=== PATIENT | female | born 1930 | race Caucasian/White ===

== ENCOUNTER → 2016-05-30 | Outpatient (CLI) | payer OTHER ==
[~2016-05-30] MED LIST: ACET-1175 PO; ALPOPS1 OPB; ALUMSUS2 PO; ASPI325T45 PO; CALC-338 PO; CHOLTAB3 PO; DORZ1SOL OPB; FLNIN NAE; GFNSR600 PO; METH500T3 PO; METR0.754 TOP; MOME200A INH; MULT-506 PO; OMEP40CA PO; OXGN; PROB1TAB16 PO; RANI300T2 PO; SNG10 PO
--- NOTE | 2016-05-30 12:40 | MAMMOGRAPHY REPORT ---
UNILATERAL LEFT DIGITAL DIAGNOSTIC MAMMOGRAM TOMOSYNTHESIS AND TARGETED LEFT ULTRASOUND: 05/30/2016 CLINICAL HISTORY: Call back from screening mammography for an 8 mm asymmetry in the anterior left br east, only seen on the MLO view. TECHNIQUE: Spot compression left CC and MLO 2-D digital and tomosynthesis images were obtained. COMPARISON: Comparison is made to exams dated: 05/17/2016 mammogram, 05/13/2015 mammogram, 05/12/20 14 mammogram, 05/11/2013 mammogram, 05/08/2012 mammogram, and 05/07/2011 mammogram - [facility]. BREAST COMPOSITION: The tissue of the left breast is heterogeneously dense, which may obscure small masses. FINDINGS: The spot compression MLO view of the left breast demonstrates near complete effacement of the 8 mm asymmetry in the anterior breast, along the posterior nipple line aerated the parenchymal p attern of the spot compression view is very similar to the 05/12/2014 exam, suggesting it represents the patient's baseline. There are minimal vascular calcification and a few benign coarse calcifica tions in the left breast. No focal architectural distortion or persistent mass. No suspicious clus ter of microcalcifications. Real-time high-resolution sonographic evaluation was performed in the 7:00 to 10:00, retroareolar an d 2:00 to 5:00 axes of the left breast. Normal fibroglandular tissue is seen without a discrete joshua id or cystic mass. IMPRESSION: ACR BI-RADS CATEGORY 2: BENIGN, TARGETED ULTRASOUND ACR BI-RADS CATEGORY 2: BENIGN Effacement of the 8 mm asymmetry in the anterior left breast, and no suspicious sonographic correlat e. This most likely represented normal overlapping fibroglandular tissue. There is no mammographic or targeted sonographic evidence of malignancy. Return to annual mammogram screening schedule is re commended. The patient has been verbally notified of the results. Approximately 10% of breast cancers are not detected with mammography. A negative mammographic repor t should not delay biopsy if a clinically suggestive mass is present. Cathy Paniagua M.D. ay/:05/30/2016 11:00:36 Water Analyst: Mariola STATON(R)(Isra), [facility] letter sent: Normal 1/2 BI-RADS Code: ACR BI-RADS Category 2: Benign Ultrasound BI-RADS: ACR BI-RADS Category 2: Benign
== END | disposition home or self-care (01) ==
LOC: C.MAMM 10:24
PROVIDERS: ATTEND Family Medicine
DX: R92.8 Other abnormal and inconclusive findings on diagnostic imaging of breast (principal)

== ENCOUNTER → 2016-07-11 | Outpatient (CLI) | payer OTHER ==
[2016-07-13 15:25] LABS: ALBUMIN 3.8 G/DL (3.8-4.8); GAMMA GLOBULIN 1.4 G/DL (0.8-1.7); TOTAL PROTEIN 7.2 G/DL (6.2-8.3)
== END | disposition home or self-care (01) ==
LOC: C.LAB1850 14:44
PROVIDERS: ATTEND Internal Medicine Rheumatology
DX: M81.0 Age-related osteoporosis without current pathological fracture (principal); E55.9 Vitamin D deficiency, unspecified; E61.8 Deficiency of other specified nutrient elements

== ENCOUNTER → 2016-08-15 | Outpatient (CLI) | payer OTHER ==
[2016-08-15 14:56] LABS: BASO % 0.5 %; BASO ABS # 0.05 K/uL (0-0.2); COMPLETE YES; EOS % 0.9 %; HEMATOCRIT 37.7 % (37-47); IG% 0.4 %; LYMPH % 20.6 %; LYMPH ABS # 2.23 K/uL (1.2-3.4); MEAN CELL VOLUME 89.3 fL (80-100); MEAN CORPUSCULAR HEMOGLOBIN 29.1 pg (25-34); MEAN CORPUSCULAR HGB CONC 32.6 g/dl (32-36); MEAN PLATELET VOLUME 9.6 fL (7.4-10.4); MONO % 7.8 %; NEUT % 69.8 %; PLATELET COUNT 247 K/uL (130-400); RED BLOOD COUNT 4.22 M/uL (4.2-5.4); WHITE BLOOD COUNT 10.81 K/uL (4.8-10.8)
[2016-08-15 15:33] LABS: BLOOD UREA NITROGEN 18 mg/dl (7-18); BUN/CREATININE RATIO 30.3 (10-20); CALCIUM 9.6 mg/dl (8.5-10.1); CARBON DIOXIDE 29 mmol/L (21-32); CHLORIDE 100 mmol/L (98-107); CREATININE 0.58 mg/dl (0.60-1.20); GLUCOSE 83 mg/dl (70-99); SODIUM 136 mmol/L (136-145)
== END | disposition home or self-care (01) ==
LOC: C.LABBC 09:33
PROVIDERS: ATTEND Family Medicine
DX: M81.0 Age-related osteoporosis without current pathological fracture (principal); G62.9 Polyneuropathy, unspecified

== ENCOUNTER → 2016-11-15 | Outpatient (CLI) | payer OTHER ==
[2016-11-15 13:18] LABS: BASO % 0.6 %; BASO ABS # 0.06 K/uL (0-0.2); COMPLETE YES; EOS % 1.2 %; HEMATOCRIT 35.9 % (37-47); IG% 0.3 %; LYMPH % 17.8 %; LYMPH ABS # 1.91 K/uL (1.2-3.4); MEAN CELL VOLUME 89.8 fL (80-100); MEAN CORPUSCULAR HEMOGLOBIN 29.8 pg (25-34); MEAN CORPUSCULAR HGB CONC 33.1 g/dl (32-36); MEAN PLATELET VOLUME 9.4 fL (7.4-10.4); MONO % 9.4 %; NEUT % 70.7 %; PLATELET COUNT 256 K/uL (130-400); WHITE BLOOD COUNT 10.73 K/uL (4.8-10.8)
== END | disposition home or self-care (01) ==
LOC: C.LABBC 09:27
PROVIDERS: ATTEND Family Medicine
DX: M81.0 Age-related osteoporosis without current pathological fracture (principal); G62.9 Polyneuropathy, unspecified

== ENCOUNTER → 2017-01-26 | Outpatient (CLI) | payer OTHER ==
--- NOTE | 2017-01-26 11:40 | DIAGNOSTIC IMAGING REPORT ---
CHEST 2 VIEWS ROUTINE, RIGHT RIBS UNILATERAL MIN 2 VIEWS HISTORY: 86 years-old Female R07.81 Rib pain on right [id number] acute atypical lower right-sided chest pain with chronic cough. COMPARISON: Chest radiograph 6 12/15/2015 TECHNIQUE: Portable upright AP view of the chest with 4 views of the right ribs. FINDINGS: CHEST: Cardiac silhouette is within normal limits. No pneumothorax. There is chronic blunting of the bilateral costophrenic angles, right greater than left with persistent multifocal multilobar distribution of coarsened reticular opacities with extensive subpleural reticulation throughout the upper greater than lower lung zones. There is suggestion of subpleural cystic changes as well within these distributions with the possibility of some traction bronchiectasis. The bones appear grossly intact. RIBS: No acute displaced rib fracture is identified. IMPRESSION: 1. No acute cardiopulmonary process. No pneumothorax. 2. No acute displaced rib fracture identified. 3. Redemonstration of fibrotic interstitial lung disease with chronic blunting of the costophrenic angles, right greater than left suggesting scarring or small effusion, unchanged from 12/15/2015. The above report was generated using voice recognition software. It may contain grammatical, syntax or spelling errors. Electronically signed by: Darnell Ghosh M.D. 01/26/2017 11:39 AM Dictated Date/Time: 01/26/2017 11:36 AM
[2017-01-26 13:56] LABS: ALKALINE PHOSPHATASE 60 U/L (45-117); ALT/SGPT 24 U/L (12-78); AST/SGOT 17 U/L (15-37); BLOOD UREA NITROGEN 16 mg/dl (7-18); BUN/CREATININE RATIO 26.2 (10-20); CALCIUM 9.2 mg/dl (8.5-10.1); CARBON DIOXIDE 32 mmol/L (21-32); CHLORIDE 99 mmol/L (98-107); CREATININE 0.61 mg/dl (0.60-1.20); GLUCOSE 99 mg/dl (70-99); POTASSIUM 4.3 mmol/L (3.5-5.1); SODIUM 134 mmol/L (136-145)
[2017-01-26 13:57] LABS: ALB/GLOB RATIO 0.8 (0.9-2)
== END | disposition home or self-care (01) ==
LOC: C.RADBC 11:09
PROVIDERS: ATTEND Internal Medicine
DX: R07.81 Pleurodynia (principal); R11.0 Nausea

== ENCOUNTER → 2017-02-06 | Outpatient (CLI) | payer OTHER ==
--- NOTE | 2017-02-06 09:26 | DIAGNOSTIC IMAGING REPORT ---
ABDOMINAL ULTRASOUND, RIGHT UPPER QUADRANT HISTORY: R11.0 nausea after eating , r/o gallbladder [id number]. COMPARISON: Abdomen and pelvis CT 09/26/2008. FINDINGS: Pancreas: The pancreatic tail is obscured by overlying bowel gas. The remaining portions of the pancreas are within normal limits. Liver: Unremarkable. Gallbladder: No gallbladder wall thickening. No gallstones. CBD: 5 mm. Right kidney: No hydronephrosis. The lower pole is obscured by overlying bowel gas. IMPRESSION: No significant abnormality identified within the right upper quadrant. Electronically signed by: Riley Vera M.D. 02/06/2017 9:25 AM Dictated Date/Time: 02/06/2017 9:23 AM
== END | disposition home or self-care (01) ==
LOC: C.ULTRBC 08:30
PROVIDERS: ATTEND Internal Medicine
DX: R11.0 Nausea (principal)

== ENCOUNTER → 2017-02-18 | Outpatient (CLI) | payer OTHER | END | disposition home or self-care (01) | LOC: C.MAMM 09:12 | PROVIDERS: ATTEND Internal Medicine Rheumatology | DX: M85.88 Other specified disorders of bone density and structure, other site (principal); M85.852 Other specified disorders of bone density and structure, left thigh; M85.851 Other specified disorders of bone density and structure, right thigh; E55.9 Vitamin D deficiency, unspecified; E61.8 Deficiency of other specified nutrient elements ==

== ENCOUNTER → 2017-03-22 | Outpatient (CLI) | payer OTHER ==
[2017-03-22 13:53] LABS: BLOOD UREA NITROGEN 15 mg/dl (7-18); BUN/CREATININE RATIO 24.7 (10-20); CARBON DIOXIDE 29 mmol/L (21-32); CHLORIDE 97 mmol/L (98-107); CREATININE 0.62 mg/dl (0.60-1.20); GLUCOSE 89 mg/dl (70-99); MAGNESIUM 2.1 mg/dl (1.8-2.4); POTASSIUM 4.5 mmol/L (3.5-5.1); SODIUM 133 mmol/L (136-145)
== END | disposition home or self-care (01) ==
LOC: C.LABBC 11:02
PROVIDERS: ATTEND Family Medicine
DX: R25.2 Cramp and spasm (principal); K21.9 Gastro-esophageal reflux disease without esophagitis; E87.1 Hypo-osmolality and hyponatremia

== ENCOUNTER → 2017-05-21 | Outpatient (CLI) | payer OTHER ==
--- NOTE | 2017-05-22 13:40 | MAMMOGRAPHY REPORT ---
BILATERAL DIGITAL SCREENING MAMMOGRAM TOMOSYNTHESIS WITH CAD: 05/21/2017 CLINICAL HISTORY: Routine screening. Patient has no complaints. TECHNIQUE: Breast tomosynthesis in addition to standard 2D mammography was performed. Current study was also evaluated with a Computer Aided Detection (CAD) system. COMPARISON: Comparison is made to exams dated: 05/30/2016 mammogram, 05/17/2016 mammogram, 05/13/2015 mammogram, 05/12/2014 mammogram, 05/11/2013 mammogram, and 05/08/2012 mammogram - [facility]. BREAST COMPOSITION: The tissue of both breasts is heterogeneously dense, which may obscure small mas ses. FINDINGS: There are a few benign rounded rim calcifications as well as mild vascular calcification i n the breasts. No suspicious mass, architectural distortion or cluster of suspicious microcalcificat ions is seen. IMPRESSION: ACR BI-RADS CATEGORY 1: NEGATIVE There is no mammographic evidence of malignancy. A 1 year screening mammogram is recommended. The pa tient will receive written notification of the results. Approximately 10% of breast cancers are not detected with mammography. A negative mammographic report should not delay biopsy if a clinically suggestive mass is present. Cathy Paniagua M.D. ay/:05/21/2017 16:26:21 Aws Consultant: Mini STATON(Scar)(M), [facility] letter sent: Normal 1/2 BI-RADS Code: ACR BI-RADS Category 1: Negative
== END | disposition home or self-care (01) ==
LOC: C.MAMM 09:15
PROVIDERS: ATTEND Family Medicine
DX: Z12.31 Encounter for screening mammogram for malignant neoplasm of breast (principal)

== ENCOUNTER 2017-06-21 11:57 | Emergency (ER) | payer OTHER ==
[~2017-06-21] VITALS: Ht 166.4 cm; Wt 65.7 kg
[2017-06-21 11:58] VITALS: Ht 166.4 cm; Wt 65.7 kg
[2017-06-21] MEDS ORDERED: ACETAMINOPHEN 500 MG TAB PO ONE (12:22)
[2017-06-21] MEDS ORDERED: SODIUM CHLORIDE 0.9% 500ML 500 ML IV STA (12:33)
[2017-06-21] MEDS ORDERED: ALBUT/IPRATROP 3MG/0.5MG NEB 3 ML VIAL INH STA (12:33)
[2017-06-21 12:45] LABS: HEMATOCRIT 36.6 % (37-47); HEMOGLOBIN 12.1 g/dL (12.0-16.0); MEAN CELL VOLUME 89.7 fL (80-100); MEAN CORPUSCULAR HEMOGLOBIN 29.7 pg (25-34); MEAN CORPUSCULAR HGB CONC 33.1 g/dl (32-36); MEAN PLATELET VOLUME 9.2 fL (7.4-10.4); PLATELET COUNT 175 K/uL (130-400); RED CELL DISTRIBUTION WIDTH CV 14.1 % (11.5-14.5); RED CELL DISTRIBUTION WIDTH SD 46.5 fL (36.4-46.3)
[2017-06-21 12:56] LABS: INR 1.1 (0.9-1.1); PTT PATIENT 27.7 SECONDS (21.0-31.0)
[2017-06-21 13:02] LABS: BASO % 0.7 %; BASO ABS # 0.07 K/uL (0-0.2); IG# 0.06 K/uL (0.00-0.02); LYMPH % 9.9 %; LYMPH ABS # 0.99 K/uL (1.2-3.4); MONO % 8.5 %; MONO ABS # 0.85 K/uL (0.11-0.59); NEUT % 80.3 %; NEUT ABS # 8.03 K/uL (1.4-6.5)
[2017-06-21 13:03] LABS: ALBUMIN 3.8 gm/dl (3.4-5.0); CALCIUM 9.2 mg/dl (8.5-10.1); CREATININE 0.59 mg/dl (0.60-1.20); POTASSIUM 3.8 mmol/L (3.5-5.1)
--- NOTE | 2017-06-21 13:03 | DIAGNOSTIC IMAGING REPORT ---
CHEST ONE VIEW PORTABLE CLINICAL HISTORY: Fever. Evaluate for pneumonia. COMPARISON STUDY: Chest radiograph January 26, 2017. FINDINGS: The patient is mildly rotated. There is mild upper mediastinal widening. No pneumothorax or pleural effusion is noted. There is no lobar consolidation. Reticulonodular interstitial thickening with bronchiectasis is noted. This represents interstitial lung disease. No superimposed consolidation is identified. IMPRESSION: 1. No change in reticulonodular interstitial thickening and bronchiectasis consistent with interstitial lung disease. No superimposed consolidation identified. 2. Mild upper mediastinal widening. This is likely due to a rotated study; however, mediastinal lymphadenopathy could appear similar. Follow-up nonemergent PA and lateral chest radiographs are recommended. Electronically signed by: Jatin Pedro M.D. 06/21/2017 1:02 PM Dictated Date/Time: 06/21/2017 12:59 PM
[2017-06-21 13:06] LABS: TOTAL PROTEIN 8.2 gm/dl (6.4-8.2)
--- NOTE | 2017-06-21 13:06 | EMERGENCY ROOM VISIT NOTE ---
History Report prepared by Carroll: Lenny Valverde Under the Supervision of: Dr. Rashid Santana M.D. First contact with patient: 12:27 Chief Complaint: RESPIRATORY PROBLEMS Stated Complaint: POSSIBLE PNEUMONIA- DR CHRISTIANSEN History of Present Illness The patient is an 86 year old female who presents to the Emergency Room with complaints of a persistent cough starting yesterday. The patient was seen by Dr. Christiansen this morning and had an oxygen saturation of 90%, a fever, and a cough, and she was sent to the ED for evaluation for a possible pneumonia. The patient states that her cough is sometimes dry and sometimes it is productive. The patient denies any vomiting, diarrhea, sore throat, stuffy nose, and any sick contacts. She additionally states that she is having some chest pain when she coughs. The patient has a history of COPD, and she has been using an inhaler at home. She states that she had her flu shot this year. Source of History: patient Onset: yesterday Position: other (global) Quality: other (cough) Timing: other (persistent) Associated Symptoms: + chest pain (with coughing), No sorethroat, No vomiting, No diarrhea Review of Systems See HPI for pertinent positives & negatives. A total of 10 systems reviewed and were otherwise negative. 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 Family History Cancer Diabetes mellitus FH: heart disease Social History Smoking Status: Never Smoker Alcohol Use: none Housing Status: lives with family Occupation Status: retired Current/Historical Medications Scheduled Amoxicillin & Pot Clavulanate (Augmentin 875-125 mg), 875 MG PO BID Aspirin (Aspirin), 325 MG PO HS Azelastine HCl (Azelastine HCl), 2 SPRAYS IVETT BID Bioflavonoid Products (Ghazal-C), 1 TAB PO DAILY Calcium Citrate-Vitamin D (Citracal/Vitamin D), 1 TAB PO DAILY Cholecalciferol (Vitamin D3), 1 CAP PO DAILY Dorzolamide Hcl Oph (Trusopt Oph), 1 DROP OPB BID Fish Oil ([place]-3), 1 CAP PO DAILY Fluticasone Propionate (Flonase Nasal [place] *), 1 SPRAY IVETT QAM Guaifenesin Ext Rel (Mucinex Ext Rel *), 600 MG PO Q12 Home O2 Therapy (Oxygen), 2 LITERS NA HS Methylcellulose (Laxative) (Citrucel), 1,000 MG PO DAILY Metronidazole Hcl (Metrocream), 1 DROP TOP BID Mometasone Furoate-Formoterol (Dulera 100/5 Mcg), 2 PUFFS INH BID Mometasone Furoate-Formoterol (Dulera 100/5 Mcg), 2 PUFFS INH BID Montelukast (Singulair *), 10 MG PO DAILY Multivitamin (Multivitamin), 1 TAB PO DAILY Omeprazole (Prilosec), 20 MG PO DAILY Oseltamivir (Tamiflu), 75 MG PO BID Polyethylene Glycol-Propylene (Systane), 1 DROPS OPB 1200 Probiotic Product (Probiotic), 1 TAB PO DAILY Ranitidine Hcl (Zantac), 150 MG PO DAILY Allergies Coded Allergies: Diphenhydramine (Verified Allergy, Mild, CAN TAKE TYLENOL, 11/26/13) Alendronate (Verified Allergy, Unknown, 11/26/13) Amitriptyline (Verified Allergy, Unknown, 11/26/13) Benzonatate (Verified Allergy, Unknown, 11/26/13) Hydroxyzine (Verified Allergy, Unknown, HYDROXYZINE SYRUP, 07/01/09) Meclofenamate (Verified Allergy, Unknown, 07/01/09) Propoxyphene (Verified Allergy, Unknown, DARVOCET, 12/15/15) Quinolones (Verified Allergy, Unknown, CIPRO, FLOXIN, 07/01/09) Rofecoxib (Verified Allergy, Unknown, 07/01/09) Senna (Verified Allergy, Unknown, 07/01/09) Albuterol (Verified Adverse Reaction, Mild, SORE GUMS, 07/01/09) Codeine (Verified Adverse Reaction, Mild, 07/01/09) Physical Exam Vital Signs Date Time Temp Pulse Resp B/P (MAP) Pulse Ox O2 Delivery O2 Flow Rate FiO2 06/21/17 14:30 37.4 89 20 102/59 92 Room Air 06/21/17 12:45 93 Room Air 06/21/17 12:41 95 Room Air 06/21/17 12:23 97 06/21/17 11:58 39.2 103 18 146/73 91 Room Air Physical Exam GENERAL: Patient is in no acute distress. HEENT: No acute trauma, normocephalic atraumatic, mucous membranes moist, no nasal congestion, no scleral icterus. NECK: No stridor, no adenopathy, no meningismus, trachea is midline. LUNGS: Scattered crackles more so on the right. No wheezing. Breath sounds equal. No respiratory distress. HEART: 2/6 systolic murmur but regular rate and rhythm. ABDOMEN: Soft, nontender, bowel sounds positive, no hernias, no peritonitis. EXTREMITIES: No cyanosis or edema, full range of motion of all the joints without pain or difficulty, no signs for acute trauma. NEUROLOGIC: Oriented x 3, no acute motor or sensory deficits, no focal weakness. SKIN: No rash, no jaundice, no diaphoresis. Medical Decision & Procedures ER Provider Diagnostic Interpretation: Radiology results as stated below per my review and radiologist interpretation: CHEST ONE VIEW PORTABLE CLINICAL HISTORY: Fever. Evaluate for pneumonia. COMPARISON STUDY: Chest radiograph January 26, 2017. FINDINGS: The patient is mildly rotated. There is mild upper mediastinal widening. No pneumothorax or pleural effusion is noted. There is no lobar consolidation. Reticulonodular interstitial thickening with bronchiectasis is noted. This represents interstitial lung disease. No superimposed consolidation is identified. IMPRESSION: 1. No change in reticulonodular interstitial thickening and bronchiectasis consistent with interstitial lung disease. No superimposed consolidation identified. 2. Mild upper mediastinal widening. This is likely due to a rotated study; however, mediastinal lymphadenopathy could appear similar. Follow-up nonemergent PA and lateral chest radiographs are recommended. Electronically signed by: Jatin Pedro M.D. 06/21/2017 1:02 PM Dictated Date/Time: 06/21/2017 12:59 PM Laboratory Results 06/21/17 12:25 Red Blood Count 4.08, Mean Corpuscular Volume 89.7, Mean Corpuscular Hemoglobin 29.7, Mean Corpuscular Hemoglobin Concent 33.1, Mean Platelet Volume 9.2, Neutrophils (%) (Auto) 80.3, Lymphocytes (%) (Auto) 9.9, Monocytes (%) (Auto) 8.5, Eosinophils (%) (Auto) 0.0, Basophils (%) (Auto) 0.7, Neutrophils # (Auto) 8.03, Lymphocytes # (Auto) 0.99, Monocytes # (Auto) 0.85, Eosinophils # (Auto) 0.00, Basophils # (Auto) 0.07 06/21/17 12:25 Test 06/21/17 12:25 06/21/17 12:33 06/21/17 12:36 06/21/17 13:14 White Blood Count 10.00 K/uL (4.8-10.8) Red Blood Count 4.08 M/uL (4.2-5.4) Hemoglobin 12.1 g/dL (12.0-16.0) Hematocrit 36.6 % (37-47) Mean Corpuscular Volume 89.7 fL (80-100) Mean Corpuscular Hemoglobin 29.7 pg (25-34) Mean Corpuscular Hemoglobin Concent 33.1 g/dl (32-36) Platelet Count 175 K/uL (130-400) Mean Platelet Volume 9.2 fL (7.4-10.4) Neutrophils (%) (Auto) 80.3 % Lymphocytes (%) (Auto) 9.9 % Monocytes (%) (Auto) 8.5 % Eosinophils (%) (Auto) 0.0 % Basophils (%) (Auto) 0.7 % Neutrophils # (Auto) 8.03 K/uL (1.4-6.5) Lymphocytes # (Auto) 0.99 K/uL (1.2-3.4) Monocytes # (Auto) 0.85 K/uL (0.11-0.59) Eosinophils # (Auto) 0.00 K/uL (0-0.5) Basophils # (Auto) 0.07 K/uL (0-0.2) RDW Standard Deviation 46.5 fL (36.4-46.3) RDW Coefficient of Variation 14.1 % (11.5-14.5) Immature Granulocyte % (Auto) 0.6 % Immature Granulocyte # (Auto) 0.06 K/uL (0.00-0.02) Red Blood Cell Morphology Unremarkable Prothrombin Time 11.1 SECONDS (9.0-12.0) Prothromb Time International Ratio 1.1 (0.9-1.1) Activated Partial Thromboplast Time 27.7 SECONDS (21.0-31.0) Partial Thromboplastin Ratio 1.1 Anion Gap 6.0 mmol/L (3-11) Est Creatinine Clear Calc Drug Dose 62.9 ml/min Estimated GFR () 96.2 Estimated GFR (Non- 83.0 BUN/Creatinine Ratio 23.6 (10-20) Calcium Level 9.2 mg/dl (8.5-10.1) Magnesium Level 1.9 mg/dl (1.8-2.4) Total Bilirubin 0.4 mg/dl (0.2-1) Aspartate Amino Transf (AST/SGOT) 20 U/L (15-37) Alanine Aminotransferase (ALT/SGPT) 24 U/L (12-78) Alkaline Phosphatase 47 U/L (45-117) Total Protein 8.2 gm/dl (6.4-8.2) Albumin 3.8 gm/dl (3.4-5.0) Globulin 4.4 gm/dl (2.5-4.0) Albumin/Globulin Ratio 0.9 (0.9-2) Influenza Type A Antigen POS for Influ A (NEG) Influenza Type B Antigen Neg for Influ B (NEG) Bedside Lactic Acid Venous 0.81 mmol/L (0.90-1.70) Urine Color YELLOW Urine Appearance CLEAR (CLEAR) Urine pH 8.0 (4.5-7.5) Urine Specific [place] 1.022 (1.000-1.030) Urine Protein NEG (NEG) Urine Glucose (UA) NEG (NEG) Urine Ketones 1+ (NEG) Urine Occult Blood NEG (NEG) Urine Nitrite NEG (NEG) Urine Bilirubin NEG (NEG) Urine Urobilinogen NEG (NEG) Urine Leukocyte Esterase NEG (NEG) Urine WBC (Auto) 1-5 /hpf (0-5) Urine RBC (Auto) 10-30 /hpf (0-4) Urine Hyaline Casts (Auto) 1-5 /lpf (0-5) Urine Epithelial Cells (Auto) 10-20 /lpf (0-5) Urine Bacteria (Auto) NEG (NEG) Laboratory results reviewed by me. Medications Administered Medications (Trade) Dose Ordered Sig/Mallory Route Start Time Stop Time Status Last Admin Dose Admin Acetaminophen (Tylenol Tab) 1,000 mg STK-MED ONCE PO 1/26/18 12:22 06/21/17 12:23 DC 06/21/17 13:00 1,000 MG Albuterol/ Ipratropium (Duoneb) 3 ml NOW STAT INH 06/21/17 12:33 06/21/17 12:36 DC 06/21/17 13:00 3 ML Sodium Chloride 500 ml @ 999 mls/hr Q31M STAT IV 06/21/17 12:33 06/21/17 13:03 DC 06/21/17 13:00 999 MLS/HR Ampicillin Sodium/ Sulbactam Sodium 3000 mg/Sodium Chloride 108 ml @ 200 mls/hr ONE ONCE IV 06/21/17 13:30 06/21/17 14:02 DC 06/21/17 13:48 200 MLS/HR Oseltamivir Phosphate (Tamiflu Cap) 75 mg NOW STAT PO 06/21/17 13:44 06/21/17 13:45 DC 06/21/17 14:29 75 MG Albuterol (Ventolin Hfa Inhaler) 2 puffs NOW ONCE INH 06/21/17 14:30 06/21/17 14:31 DC 06/21/17 14:32 2 PUFFS ECG Indication: chest pain Rate (beats per minute): 100 Rhythm: sinus rhythm Findings: PAC, no acute ischemic change, other (Old septal infarct) Change: Patient's EKG interpreted by me. ED Course 1222: Tylenol 1000mg PO 1227: The patient was evaluated in room C3. A complete history and physical exam was performed. 1233: Sodium Chloride 500 ml @ 999 mls/hr IV, DuoNeb 3ml INH 1330: Ampicillin Sodium/ Sulbactam Sodium 3000mg/ Sodium Chloride 108ml @ 200mls /hr IV 1344: Tamiflu Cap 75mg PO 1400 I reevaluated the patient, and she states that she is doing well and wants to go home. 1430: Albuterol 2 puffs INH. 1432: Reevaluated the patient. Discussed results and discharge instructions: She verbalized understanding and agreement. The patient is ready for discharge. Medical Decision Differential diagnoses include: influenza or flu like illness, bronchitis, pneumonia, UTI, sepsis, dehydration, and electrolyte imbalance. There is no leukocytosis or concerning anemia. Sodium slightly low but not critical. No kidney failure. Lactic acid level is not elevated making sepsis less likely. Chest film shows chronic findings, no focal pneumonia, no pneumothorax. Influenza testing was positive for influenza A. EKG shows a sinus rhythm with PACs, no acute ischemia. Blood cultures are pending. Urinalysis does not show infection. There was no coagulopathy. The patient has underlying lung disease and presents with a fever and cough. She has influenza A. I do think this is likely responsible for her entire presentation. Given the lung disease, I am going to prescribe antibiotics. She was given a dose of IV Unasyn here, she was given oral Tamiflu. She was given albuterol via MDI. She received oral Tylenol. She received a small bolus of IV saline. The patient is adamant that she wants to go home. Her O2 saturation is somewhat low but not too concerning given her underlying lung disease. She denies feeling short of breath even with exertion. She will be discharged on Tamiflu, Augmentin, albuterol. She will continue her other meds as before. She has agreed to return to this ER if worsening or feeling short of breath. She will see her doctors office next week for a recheck. Medication Reconcilliation Current Medication List: was personally reviewed by me Blood Pressure Screening Patient's blood pressure: Elevated blood pressure Blood pressure disposition: Elevated BP felt to be situational Impression Primary Impression: Influenza A Additional Impressions: Fever COPD exacerbation Scribe Attestation The scribe's documentation has been prepared under my direction and personally reviewed by me in its entirety. I confirm that the note above accurately reflects all work, treatment, procedures, and medical decision making performed by me. Departure Information Dispostion Home / Self-Care Prescriptions Amoxicillin & Pot Clavulanate (Augmentin 875-125 mg) 1 Tab Tab 875 MG PO BID for 7 Days, #14 TAB Prov: Rashid Santana M.D. 06/21/17 Oseltamivir (Tamiflu) 75 Mg Cap 75 MG PO BID, #10 CAP Prov: Rashid Santana M.D. 06/21/17 Referrals Ashley Christiansen MD (PCP) Forms HOME CARE DOCUMENTATION FORM, IMPORTANT VISIT INFORMATION Patient Instructions My [facility] Additional Instructions add augmentin 2x per day for 1 week add tamiflu 2x per day for 5 days add albuterol 3 puffs every 4 hours use tylenol for fever and aches see handy corcoran this upcoming week return for worsening breathing or symptoms as we discussed Problem Qualifiers
[2017-06-21] MEDS ORDERED: AMPICILLIN/SULBACTAM SOD INJ 3,000 MG in SODIUM CHLORIDE 0.9% 100ML 100 ML IV ONE (13:30)
[2017-06-21 13:39] LABS: INFLUENZA B ANTIGEN Neg for Influ B (NEG)
[2017-06-21] MEDS ORDERED: OSELTAMIVIR PHOSPHATE 75 MG CAP PO STA (13:44)
[2017-06-21] MEDS ORDERED: RANI150T3 PO (14:11)
[2017-06-21] MEDS ORDERED: [UNRECOGNIZED DRUG - CODE] PO (14:11)
[2017-06-21] MEDS ORDERED: OMEG10007 PO (14:11)
[2017-06-21] MEDS ORDERED: POLYSOL4 OPB (14:11)
[2017-06-21] MEDS ORDERED: PRLSR20 PO (14:11)
[2017-06-21] MEDS ORDERED: DULERA INHALER INH (14:11)
[2017-06-21] MEDS ORDERED: CHOL2000 PO (14:11)
[2017-06-21] MEDS ORDERED: MOME100A INH ×2 (14:11→14:13)
[2017-06-21] MEDS ORDERED: AZEL0.056 NAE (14:11)
[2017-06-21 14:30] VITALS: BP 102/59; PULSE 89; TEMP 37.4; O2SAT 92
[2017-06-21] MEDS ORDERED: ALBUTEROL HFA 8 GM INHALER INH ONE (14:30)
[2017-06-21] MEDS ORDERED: AMOX875T PO (14:46)
[2017-06-21] MEDS ORDERED: OSEL75CA12 PO (14:46)
== END 2017-06-21 15:26 | disposition home or self-care (01) ==
LOC: C.EDB 11:57 → C.EDC 15:26
DX: J11.1 Influenza due to unidentified influenza virus with other respiratory manifestations (principal); J44.1 Chronic obstructive pulmonary disease with (acute) exacerbation; F32.9 Major depressive disorder, single episode, unspecified; K21.9 Gastro-esophageal reflux disease without esophagitis; K58.9 Irritable bowel syndrome, unspecified; H40.10X0 Unspecified open-angle glaucoma, stage unspecified; M19.90 Unspecified osteoarthritis, unspecified site; M81.0 Age-related osteoporosis without current pathological fracture; G50.0 Trigeminal neuralgia; Z80.9 Family history of malignant neoplasm, unspecified; Z83.3 Family history of diabetes mellitus; Z79.82 Long term (current) use of aspirin; Z79.899 Other long term (current) drug therapy

== ENCOUNTER → 2017-07-16 | Outpatient (CLI) | payer OTHER ==
[~2017-07-16] MED LIST changes: -ACET-1175 PO; -ALPOPS1 OPB; -ALUMSUS2 PO; +AZEL0.056 NAE; +CHOL2000 PO; -CHOLTAB3 PO; +MOME100A INH; -MOME200A INH; +OMEG10007 PO; -OMEP40CA PO; +OSEL75CA12 PO; +POLYSOL4 OPB; +PRLSR20 PO; +RANI150T3 PO; -RANI300T2 PO; +[UNRECOGNIZED DRUG - CODE] PO
[2017-07-16 15:08] LABS: BLOOD UREA NITROGEN 22 mg/dl (7-18); CARBON DIOXIDE 29 mmol/L (21-32); CREATININE 0.63 mg/dl (0.60-1.20); GLUCOSE 103 mg/dl (70-99); PHOSPHORUS 3.5 mg/dl (2.5-4.9); SODIUM 133 mmol/L (136-145)
== END | disposition home or self-care (01) ==
LOC: C.LABBC 09:18
PROVIDERS: ATTEND Internal Medicine Nephrology
DX: E22.2 Syndrome of inappropriate secretion of antidiuretic hormone (principal)

== ENCOUNTER → 2017-08-01 | Outpatient (CLI) | payer OTHER ==
--- NOTE | 2017-08-01 14:39 | DIAGNOSTIC IMAGING REPORT ---
CHEST 2 VIEWS ROUTINE HISTORY: Shortness of breath. COMPARISON: Chest 06/21/2017. FINDINGS: No pneumothorax. No pleural effusions. Coarse interstitial markings most pronounced along the periphery remain unchanged. No new focal lung consolidations. No evidence for pulmonary edema. The heart is normal in size. IMPRESSION: Stable chronic interstitial changes. No acute process within the chest. Electronically signed by: Riley Vera M.D. 08/01/2017 2:38 PM Dictated Date/Time: 08/01/2017 2:33 PM
== END | disposition home or self-care (01) ==
LOC: C.RAD1850 14:15
PROVIDERS: ATTEND Physician Assistant Medical
DX: R06.02 Shortness of breath (principal)

== ENCOUNTER → 2017-08-23 | Outpatient (CLI) | payer OTHER ==
--- NOTE | 2017-08-23 10:19 | DIAGNOSTIC IMAGING REPORT ---
ABDOMEN 2VIEW W/PA CHEST RTN CLINICAL HISTORY: R19.7 Acute diarrhea change in bowel habits. Mucous stool. Diarrhea. COMPARISON STUDY: Chest x-ray dated 08/01/2017 FINDINGS: Erect chest reveals chronic lung disease with upper lung zone predominance. There is trace fluid within a right upper lobe lung cyst. There is no free intraperitoneal air. A trace right pleural effusion is suspected. Erect and supine views the abdomen reveal mild to moderate stool the right colon. There are no transition zones indicate bowel obstruction. There is no pathologic bowel dilatation. IMPRESSION: 1. No evidence of bowel obstruction. No evidence of free air 2. Chronic lung disease. Trace right pleural effusion. Trace fluid within the right upper lobe lung cyst Electronically signed by: Kiet Lassiter M.D. 08/23/2017 10:18 AM Dictated Date/Time: 08/23/2017 10:16 AM
[2017-08-23 14:33] LABS: BASO % 0.5 %; BASO ABS # 0.05 K/uL (0-0.2); EOS % 2.2 %; EOS ABS # 0.21 K/uL (0-0.5); HEMATOCRIT 37.7 % (37-47); IG# 0.03 K/uL (0.00-0.02); LYMPH % 24.6 %; LYMPH ABS # 2.35 K/uL (1.2-3.4); MEAN CELL VOLUME 91.3 fL (80-100); MEAN CORPUSCULAR HEMOGLOBIN 29.1 pg (25-34); MEAN CORPUSCULAR HGB CONC 31.8 g/dl (32-36); MEAN PLATELET VOLUME 9.9 fL (7.4-10.4); MONO % 9.4 %; NEUT ABS # 6.03 K/uL (1.4-6.5); PLATELET COUNT 252 K/uL (130-400); RED CELL DISTRIBUTION WIDTH CV 14.4 % (11.5-14.5); RED CELL DISTRIBUTION WIDTH SD 48.4 fL (36.4-46.3); WHITE BLOOD COUNT 9.57 K/uL (4.8-10.8)
[2017-08-23 15:14] LABS: BLOOD UREA NITROGEN 21 mg/dl (7-18); CALCIUM 9.2 mg/dl (8.5-10.1); CARBON DIOXIDE 29 mmol/L (21-32); CREATININE 0.59 mg/dl (0.60-1.20); GLUCOSE 94 mg/dl (70-99); SODIUM 135 mmol/L (136-145)
== END | disposition home or self-care (01) ==
LOC: C.RADBC 09:42
PROVIDERS: ATTEND Family Medicine
DX: R19.7 Diarrhea, unspecified (principal)

== ENCOUNTER → 2017-08-24 | Outpatient (CLI) | payer OTHER | END | disposition home or self-care (01) | LOC: C.LAB1850 10:09 | PROVIDERS: ATTEND Family Medicine | DX: R19.7 Diarrhea, unspecified (principal) ==

== ENCOUNTER → 2017-10-14 | Outpatient (CLI) | payer OTHER ==
[~2017-10-14] MED LIST changes: +ASPECOTC PO; -ASPI325T45 PO
[2017-10-14 14:34] LABS: ALBUMIN 3.2 gm/dl (3.4-5.0); BLOOD UREA NITROGEN 18 mg/dl (7-18); CARBON DIOXIDE 31 mmol/L (21-32); CREATININE 0.59 mg/dl (0.60-1.20); GLUCOSE 98 mg/dl (70-99); PHOSPHORUS 3.5 mg/dl (2.5-4.9); SODIUM 135 mmol/L (136-145)
== END | disposition home or self-care (01) ==
LOC: C.LABBC 09:44
PROVIDERS: ATTEND Internal Medicine Nephrology
DX: Z87.898 Personal history of other specified conditions (principal)